=== PATIENT | male | born 1955 | race Hispanic/Latino ===

== ENCOUNTER 2018-06-06 09:19 | Observation (INO) | payer BC ==
[~2018-06-06] VITALS: Ht 162.6 cm; Wt 81.8 kg
[~2018-06-06 09:19] MED LIST: (None)3.5 GM OP; GENTAMICIN15 ML/BTL OP; LORTAB 7.57.5 MG PO
[2018-06-06 10:09] LABS: HEMATOCRIT 48.9 % (39.0-50.0); HEMOGLOBIN 16.7 g/dl (14.0-18.0); IMMATURE GRANULOCYTES 0.4 % (0.0-5.0); MEAN CELL VOLUME 92.6 fL CALC (80.0-100.0); MEAN CORPUSCULAR HGB 31.6 pG CALC (26.0-32.0); MEAN CORPUSCULAR HGB CONC 34.2 g/L CALC (32.0-36.0); NEUT# 6.86 thou/uL (1.82-7.42); RED BLOOD COUNT 5.28 mill/uL (4.70-6.10); RED CELL DISTRI WIDTH 12.1 % (11.5-15.5)
[2018-06-06 10:30] LABS: ANION GAP 14 (6-22 (CALC)); BUN 13 mg/dL (9-20); BUN/CREATININE RATIO 14 (12-20 (CALC)); CARBON DIOXIDE 25 mmol/l (22-30); CHLORIDE 102 mmol/l (95-108); CREATININE 0.9 mg/dL (0.7-1.3); GFR > 60 ML/MIN (>=60 (CALC)); GFR FOR AFR.AMER. > 60 ML/MIN (>=60 (CALC)); POTASSIUM 4.4 mmol/l (3.5-5.1); SODIUM 137 mmol/l (137-146)
[2018-06-06 13:00] VITALS: BP 139/80
[2018-06-06 16:30] VITALS: BP 143/81
[2018-06-06 20:00] VITALS: BP 127/81
[2018-06-06 23:28] VITALS: BP 107/71
[2018-06-07 04:08] VITALS: BP 118/69
[2018-06-07 06:09] LABS: ALKALINE PHOSPHATASE 56 u/l (38-126); AMYLASE 40 u/l (30-110); ANION GAP 12 (6-22 (CALC)); BILIRUBIN, TOTAL 1.1 mg/dL (0.0-1.4); BUN 11 mg/dL (9-20); BUN/CREATININE RATIO 11 (12-20 (CALC)); CARBON DIOXIDE 26 mmol/l (22-30); CHLORIDE 105 mmol/l (95-108); GFR > 60 ML/MIN (>=60 (CALC)); GFR FOR AFR.AMER. > 60 ML/MIN (>=60 (CALC)); LIPASE 69 u/l (23-300); MAGNESIUM 2.1 mg/dL (1.6-2.3); POTASSIUM 4.1 mmol/l (3.5-5.1); SODIUM 138 mmol/l (137-146)
[2018-06-07 06:13] LABS: HEMOGLOBIN 15.5 g/dl (14.0-18.0); IMMATURE GRANULOCYTES 0.2 % (0.0-5.0); MEAN CELL VOLUME 92.8 fL CALC (80.0-100.0); MEAN CORPUSCULAR HGB CONC 34.4 g/L CALC (32.0-36.0); NEUT# 3.74 thou/uL (1.82-7.42); RED BLOOD COUNT 4.85 mill/uL (4.70-6.10); RED CELL DISTRI WIDTH 12.2 % (11.5-15.5)
[2018-06-07 06:31] LABS: ALBUMIN 3.6 g/dL (3.2-5.0); SGOT/AST 18 u/l (17-59); TOTAL PROTEIN 6.4 g/dL (6.3-8.2)
[2018-06-07 08:54] VITALS: BP 118/70
[2018-06-07 11:15] VITALS: BP 122/76
[2018-06-07] MEDS ORDERED: PROTONIX40 M2 PO (14:03)
== END 2018-06-07 14:57 | disposition home or self-care (01) | DRG 313 ==
LOC: ED 09:19 → ED-I 11:02 → ED 11:32 → MS2 11:33
PROVIDERS: Family Medicine; ADMIT Internal Medicine Nephrology; ATTEND Internal Medicine Nephrology
DX: R07.89 Other chest pain (principal); K21.9 Gastro-esophageal reflux disease without esophagitis; M19.90 Unspecified osteoarthritis, unspecified site
CPT/HCPCS: G0378

== ENCOUNTER 2018-10-15 14:25 | Emergency (ER) | payer OTHER, BC ==
[~2018-10-15] VITALS: Ht 162.6 cm; Wt 65.0 kg
[~2018-10-15 14:25] MED LIST changes: +PROTONIX40 M2 PO
[2018-10-15 16:40] VITALS: BP 138/66
== END 2018-10-15 16:40 | disposition home or self-care (01) | DRG 605 ==
LOC: ED 14:25
DX: S20.212A Contusion of left front wall of thorax, initial encounter (principal); W01.198A Fall on same level from slipping, tripping and stumbling with subsequent striking against other object, initial encounter; Y93.H9 Activity, other involving exterior property and land maintenance, building and construction; Y92.007 Garden or yard of unspecified non-institutional (private) residence as the place of occurrence of the external cause

== ENCOUNTER 2019-09-18 10:43 | Observation (INO) | payer BC ==
[~2019-09-18] VITALS: Ht 165.1 cm; Wt 72.2 kg
--- NOTE | 2019-09-18 11:29 | NUR ---
PATIENT AMBULATED TO ROOM WITH STEADY GAIT AND PHYSICIAN NOTIFIED OF PATIENT STATUS
[2019-09-18 12:19] LABS: HEMATOCRIT 50.9 % (39.0-50.0); IMMATURE GRANULOCYTES 0.7 % (0.0-5.0); MEAN CELL VOLUME 90.9 fL CALC (80.0-100.0); MEAN CORPUSCULAR HGB CONC 35.2 g/dL CAL (32.0-36.0); NEUT# 21.38 thou/uL (1.82-7.42); RED BLOOD COUNT 5.6 mill/uL (4.70-6.10); RED CELL DISTRI WIDTH 12.7 % (11.5-15.5)
--- NOTE | 2019-09-18 12:27 | NUR ---
PT IS RESTING COMFORTABLY WIT NO DISTRESS NOTED.
[2019-09-18 12:28] LABS: HEMOGLOBIN 17.9 g/dl (14.0-18.0)
[2019-09-18 12:43] LABS: AMYLASE 90 u/l (30-110); ANION GAP 14 (6-22 (CALC)); BUN 14 mg/dL (8-23); BUN/CREATININE RATIO 15 (12-20 (CALC)); CARBON DIOXIDE 24 mmol/l (22-30); CHLORIDE 100 mmol/l (95-108); CPK 33 u/l (52-200); ETHYL ALCOHOL 0 mg/dl (0-30); GFR > 60 ML/MIN (>=60 (CALC)); GFR FOR AFR.AMER. > 60 ML/MIN (>=60 (CALC)); LIPASE 40 u/l (23-300); MAGNESIUM 2.1 mg/dL (1.6-2.3); POTASSIUM 4.1 mmol/l (3.5-5.1); SODIUM 135 mmol/l (137-146)
[2019-09-18 12:44] LABS: ALBUMIN 4.8 g/dL (3.2-5.0); ALKALINE PHOSPHATASE 128 u/l (38-126); BILIRUBIN, TOTAL 3.1 mg/dL (0.0-1.4); SGOT/AST 60 u/l (19-48); TOTAL PROTEIN 8.5 g/dL (6.3-8.2)
[2019-09-18 12:45] LABS: ACT PARTIAL THROMBO TIME 27.4 SECONDS (20.0-32.5); INTERNATIONAL NORMALIZED RATIO 1.1 RATIO (0.7-1.3); PROTHROMBIN TIME 10.9 SECONDS (9.0-12.5)
[2019-09-18 12:53] LABS: MYOGLOBIN 22 ng/mL (0 - 121)
[2019-09-18 13:07] LABS: URINE BLOOD DIPSTICK TRACE-INTACT (NEGATIVE); URINE GLUCOSE - DIPSTICK 100 mg/dL (NEGATIVE); URINE KETONE TRACE mg/dL (NEGATIVE); URINE LEUK ESTERASE TRACE (NEGATIVE); URINE PH 6.5 (4.5-8.0); URINE PROTEIN - DIPSTICK 100 mg/dL (NEG-TRACE); URINE SPECIFIC GRAVITY 1.025
[2019-09-18 13:09] LABS: URINE BILIRUBIN - DIPSTICK NEGATIVE (NEGATIVE); URINE COLOR AMBER; URINE NITRITE - DIPSTICK POSITIVE (Negative)
[2019-09-18 13:13] LABS: URINE BACTERIA FEW hpf
--- NOTE | 2019-09-18 13:27 | NUR ---
PT IS RESTING. NO DISTRESS NOTED. PT WS MADE AWARE OF POSSIBLE ADMISSION.
--- NOTE | 2019-09-18 15:06 | NUR ---
PT RESTING WITH EYES CLOSED, AWAKENS EASILY. NO COMPLAINTS VOICED AT THIS TIME.
--- NOTE | 2019-09-18 15:37 | NUR ---
PT IS AWARE OF ADMISSION TO ROOM 283. TRIED CALLING REPORT BUT, NURSE WAS BUSY. PT IS STABLE NO DISTRESS NOTED.
--- NOTE | 2019-09-18 16:08 | NUR ---
REPORT CALLED TO DEJUAN RON.
--- NOTE | 2019-09-18 16:14 | NUR ---
PT ARRIVED TO UNIT VIA STRETCHER WITH ER STAFF; ALERT AND ORIENTED. AMBULATED TO BED INDEPENDENTLY WITH STEADY GAIT. C/O 8/10 HEADACHE AND GENERALIZIED SORENESS. RESPIRATIONS EVEN AND UNLABORED ON ROOM AIR; SPO2 98-100%. PLACED ON AIRBORNE/CONTACT PRECAUTIONS PENDING COVID SWAB RESULTS. 2 IV SITES APPEAR HEALTHY AND FLUSH. TELE ON. 16F FERNANDEZ DRAINING JENNIE URINE WITH SEDIMENT IN ADEQUATE AMOUNTS TO GRAVITY; LEG STRAP INTACT TO RIGHT THIGH. ORIENTED TO ROOM AND CALL LIGHT SYSTEM. PLAN OF CARE DISCUSSED. PT ENCOURAGED TO VERBALIZE CONCERNS. STATES UNDERSTANDING. SAFETY MEASURES IN PLACE. CALL LIGHT WITHIN REACH.
[2019-09-18 16:15] VITALS: BP 157/92
--- NOTE | 2019-09-18 16:16 | NUR ---
Admission Note Report Given to: ASAF ZAIDI Transported by: Wheelchair X Stretcher Transported with: X Nurse Transporter X Patent IV O2 X Drawing Hand Location: ICU X MS2
--- NOTE | 2019-09-18 18:32 | NUR ---
TYLENOL GIVEN FOR HEADACHE. MILK OF MAG GIVEN FOR BOWEL MOVEMENT. IV FLUIDS INITIATED; NORMAL SALINE NOW INFUSING AT 100 ML/HR INTO 18G RAC. COOL CLOTH APPLIED TO PT FOREHEAD.
--- NOTE | 2019-09-18 19:40 | NUR ---
PT RESTING IN BED, NO SIGNS OF DISTRESS NOTED, RESP EVEN AND UNLABORED. 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 DISCUSSED POC, PT VERBALIZED UNDERSTANDING. PT HAS FERNANDEZ DRAINING DARK JENNIE URINE, ASSESSMENT COMPLETED, PT VOICES NO NEEDS OR COMPLAINTS AT THIS TIME, CALL LIGHT IN REACH,CONTINUE TO MONITOR.
--- NOTE | 2019-09-18 19:41 | NUR ---
PT RESTING IN BED, NO SIGNS OF DISTRESS NOTED, RESP EVEN AND UNLABORED, PT ALERT AND ORIENTED X3, DISCUSSED POC, PT VOICES NO NEEDS OR COMPLAINTS AT THIS TIME. ADMISSION ASSESSMENT COMPLETED, CALL LIGHT IN REACH,CONTINUE TO MONITOR.
[2019-09-18 20:59] VITALS: BP 131/61
--- NOTE | 2019-09-18 23:45 | NUR ---
PT RESTING IN BED WITH EYES CLOSED, RESP EVEN AND UNLABORED. NO SIGNS OF DISTRESS NOTED, CALL LIGHT IN REACH,CONTINUE TO MONITOR.
[2019-09-19 00:12] VITALS: BP 141/84
--- NOTE | 2019-09-19 04:23 | NUR ---
PT RESTING IN BED, LABS AND VITALS OBTAINED. PT C/O HEADACHE MEDICATED PER MAY. CALL LIGHT IN REACH,CONTINUE TO MONITOR.
[2019-09-19 04:44] VITALS: BP 147/88
[2019-09-19 05:34] LABS: HEMATOCRIT 45.2 % (39.0-50.0); MEAN CELL VOLUME 92.4 fL CALC (80.0-100.0); MEAN CORPUSCULAR HGB 31.7 pG CALC (26.0-32.0); MEAN CORPUSCULAR HGB CONC 34.3 g/dL CAL (32.0-36.0); RED BLOOD COUNT 4.89 mill/uL (4.70-6.10); RED CELL DISTRI WIDTH 12.8 % (11.5-15.5)
[2019-09-19 05:47] LABS: HEMOGLOBIN 15.5 g/dl (14.0-18.0)
[2019-09-19 06:11] LABS: ANION GAP 10 (6-22 (CALC)); BUN 11 mg/dL (8-23); BUN/CREATININE RATIO 15 (12-20 (CALC)); CARBON DIOXIDE 22 mmol/l (22-30); CHLORIDE 107 mmol/l (95-108); CREATININE 0.8 mg/dL (0.7-1.3); GFR > 60 ML/MIN (>=60 (CALC)); GFR FOR AFR.AMER. > 60 ML/MIN (>=60 (CALC)); POTASSIUM 4.1 mmol/l (3.5-5.1); SODIUM 135 mmol/l (137-146)
[2019-09-19 08:00] VITALS: BP 118/69
--- NOTE | 2019-09-19 09:00 | NUR ---
PT SEEN AWAKE, ALERT, ORIENTED, NO DISTRESS. LUNGS CLEAR, RA. PT WITH FERNANDEZ CATHETER IN PLACE. BILATERAL AC IV SITES. BM TODAY.
--- NOTE | 2019-09-19 13:00 | NUR ---
PT REMAINS BEFORE, NO COMPLAINTS, NO DISTRESS. NO REPORT OF SHORTNESS OF BREATH.
[2019-09-19 14:40] VITALS: BP 154/92
--- NOTE | 2019-09-19 16:41 | NUR ---
PT SEEN RESTING IN THE BED, EYES CLOSED, NO EVIDENCE OF DISTRESS.
[2019-09-19 18:40] VITALS: BP 111/75
--- NOTE | 2019-09-19 21:00 | NUR ---
UPON ENTERING ROOM PT FOUND TO BE RESTING IN BED. APPEARS COMFORTABLE AND IN NO APPARENT DISTRESS. RESPIRATIONS ARE REGULAR AND UNLABORED. PHYSICAL ASSESMENT COMPLETE AT THIS TIME. SCHEDULED MED(S) ADMINISTERED, SEE E-MAR. PLAN OF CARE REVIEWED, PT DENIES QUESTIONS, VERBALIZES UNDERSTANDING. DENIES NEEDS AT THIS TIME. ITEMS WITHIN REACH, BED LOCKED IN LOW POSITION W/ BEDRAILS UP X2. CALL MCKEON WITHIN REACH, AGREES TO CALL PRN.
--- NOTE | 2019-09-20 01:00 | NUR ---
PT APPEARS TO BE SLEEPING COMFORTABLY, NO APPARENT DISTRESS, RESPIRATIONS REGULAR AND UNLABORED. CALL MCKE[place] REMAINS WITHIN REACH.
[2019-09-20 03:49] VITALS: BP 159/74
--- NOTE | 2019-09-20 05:43 | NUR ---
PHYSICAL ASSESMENT UNCHANGED FROM BEGINING OF SHIFT BASELINE. PT AFEBRILE, HEMODYNAMICS STABLE. DENIES NEEDS AT THIS TIME. ITEMS REMAIN WITHIN REACH. BED REMAINS LOCKED IN LOW POSITION W/ BEDRAILS UPX2. CALL MCKEON REMAINS WITHIN REACH, AGREES TO CALL PRN.
[2019-09-20 08:00] VITALS: BP 160/94
--- NOTE | 2019-09-20 11:10 | NUR ---
PT SEEN AWAKE, ALERT, ORIENTED X 3, AMBULATORY IN ROOM. FERNANDEZ CATHETER REMOVED, PT PROVIDED URINAL. LUNGS CLEAR, RA. NO CP OR SOB.
[2019-09-20] MEDS ORDERED: CIPROFLOXACN500 MG PO (12:53)
--- NOTE | 2019-09-20 13:48 | NUR ---
PT HAS BEEN SEEN BY DR HAYWOOD THIS AFTERNOON, DISCHARGED TO HOME. PT VERBALIZED UNDERSTANDING OF DC INSTRUCTIONS, TAKEN BY WHEELCHAIR TO BENCH OUTSIDE. PT LEAVES IN STABLE CONDITION. FERNANDEZ REMOVED EARLIER, PT ABLE TO VOID WITHOUT A PROBLEM.
== END 2019-09-20 13:30 | disposition home or self-care (01) | DRG 690 ==
LOC: ED 10:43 → MS2 14:36 → ED-I 14:36 → ED 14:50 → ED-I 14:50 → ED 15:20 → MS2 16:04
PROVIDERS: ADMIT Internal Medicine; ATTEND Internal Medicine
PROC: 0T9B70Z Drainage of Bladder with Drainage Device, Via Natural or Artificial Opening (ICD-10-PCS; principal; 2019-09-18)
DX: N39.0 Urinary tract infection, site not specified (principal); K59.00 Constipation, unspecified; K21.9 Gastro-esophageal reflux disease without esophagitis; B96.1 Klebsiella pneumoniae [K. pneumoniae] as the cause of diseases classified elsewhere; Z20.828 Contact with and (suspected) exposure to other viral communicable diseases
CPT/HCPCS: G0378; J1650

== ENCOUNTER 2021-12-27 18:05 | Emergency (ER) | payer OTHER ==
[~2021-12-27] VITALS: Ht 165.1 cm; Wt 75.0 kg
[~2021-12-27 18:05] MED LIST changes: +CIPROFLOXACN500 MG PO
[2021-12-27] MEDS ORDERED: PREDNISONE10 MG PO (18:58)
[2021-12-27 19:16] VITALS: BP 161/99
== END 2021-12-27 19:38 | disposition home or self-care (01) | DRG 607 ==
LOC: ED 18:05
DX: L25.5 Unspecified contact dermatitis due to plants, except food (principal)

== ENCOUNTER 2023-04-04 06:30 | Day surgery (SDC) | payer MEDICARE ==
[~2023-04-04] VITALS: Ht 162.6 cm; Wt 76.2 kg
[~2023-04-04 06:30] MED LIST changes: +PREDNISONE10 MG PO
[2023-04-04 08:17] VITALS: BP 139/100
== END 2023-04-04 08:48 | disposition home or self-care (01) ==
LOC: ENDO 06:30
PROVIDERS: ATTEND Surgery
PROC: 0DBK8ZX Excision of Ascending Colon, Via Natural or Artificial Opening Endoscopic, Diagnostic (ICD-10-PCS; principal; 2023-04-04)
PROC: 0DBN8ZX Excision of Sigmoid Colon, Via Natural or Artificial Opening Endoscopic, Diagnostic (ICD-10-PCS; 2023-04-04)
PROC: 0DBM8ZX Excision of Descending Colon, Via Natural or Artificial Opening Endoscopic, Diagnostic (ICD-10-PCS; 2023-04-04)
DX: Z12.11 Encounter for screening for malignant neoplasm of colon (principal); D12.4 Benign neoplasm of descending colon; D12.2 Benign neoplasm of ascending colon; D12.5 Benign neoplasm of sigmoid colon; K64.8 Other hemorrhoids